=== PATIENT | female | born 1950 | race Caucasian/White ===

== ENCOUNTER 2019-09-20 08:33 | Emergency (ER) | payer OTHER, SELFPAY ==
[2019-09-20 08:46] VITALS: BP 149/76; PULSE 82; RESP 16; TEMP 37.6; O2SAT 100
--- NOTE | 2019-09-20 08:46 | ED.SKABFB ---
HPI - Skin/Abscess/Foreign Bdy General Chief complaint: Skin/Abscess/Foreign Body Stated complaint: Needle in foot Time Seen by Provider: 09/20/19 08:56 Source: patient and RN notes reviewed Mode of arrival: ambulatory Limitations: no limitations History of Present Illness HPI narrative: This is a 69 years old female presents to the office for an evaluation of possible foreign body in her foot. States, she accidentally step on a needle and broke in half. The bottom end of the needle is still inside her left great toe because she can still see the sting attached to it. He attempt to try to remove it with no success due to pain. Tetanus is about 10 years ago, she would like a booster.She is not Diabetic. Related Data Home Medications Medication Instructions Recorded Confirmed Arthritis Med 09/20/19 Allergies Allergy/AdvReac Type Severity Reaction Status Date / Time No Known Allergies Allergy Verified 09/20/19 09:03 Review of Systems Review of Systems: Narrative: CONSTITUTIONAL: Denies fever or feeling ill CARDIOVASCULAR: Denies chest pain RESPIRATORY: Denies dyspnea GASTROINTESTINAL: Denies abdominal pain, nausea, vomiting MUSCULOSKELETAL: Reports left great toe pain with touching affected area NEUROLOGIC: Denies lightheaded All other systems reviewed are negative, except as documented in HPI. PMFSH Comments At time of signature, I agree with nursing past medical, surgical, social and family history. There is no relevant family history pertinent to the presenting complaint. Exam Narrative: Exam Narrative: GENERAL: This is a well-nourished, well-developed patient, in no apparent distress. CARDIOVASCULAR: Regular rate and rhythm without murmurs, gallops, or rubs. RESPIRATORY: Clear to auscultation. Breath sounds equal bilaterally. No wheezes, rales, or rhonchi. GASTROINTESTINAL: Abdomen soft, non-tender, nondistended. Bowel sounds are active. No guarding. SKIN: warm, intact with no suspicious lesions or rash, good texture and turgor. NEURO: awake, alert, and oriented to person, place and time. There were no obvious focal neurologic abnormalities. Steady gait EXTREMITIES: Normal range of motion. Pedal pulse intact. Left medial aspect of great toe noted blue thread with foreign body sensation to palpation. [place] Coma Scale Eye Opening: Spontaneous 4 Sadie Coma Scale Motor: Obeys Commands 6 Sadie Coma Scale Verbal: Oriented 5 Course Vital Signs Vital signs: Vital Signs Temperature 99.7 F H 09/20/19 08:46 Pulse Rate 82 09/20/19 08:46 Respiratory Rate 16 09/20/19 08:46 Blood Pressure 149/76 H 09/20/19 08:46 Pulse Oximetry 100 09/20/19 08:46 Temperature 99.7 F H 09/20/19 08:46 Pulse Rate 82 09/20/19 08:46 Respiratory Rate 16 09/20/19 08:46 Blood Pressure 149/76 H 09/20/19 08:46 Pulse Oximetry 100 09/20/19 08:46 Procedures Foreign Body Removal Foreign Body #1: Foreign Body Removal Date: 09/20/19 Foreign Body Removal Time: 09:04 Time Out Performed: no Site: left, lower extremity and other (toe) Description of foreign body: needle Sedation/Analgesia: none and other (localize lidocain with .5ml) Technique: manual removal and incision made to facilitate removal Confirmed by:: direct visualization Complications: none Post-procedure exam: awake, alert Neurovascular: normal distal pulse, normal capillary fill, distal light touch sensation intact and no change from pre-procedure Foreign Body Removal Narrative: The wound was cleaned with Betadine swab prior to localized injection of lidocaine and small incision is made to facilitate the removal of a needle. No foreign body felt after the removal of needle. Patient tolerated procedure well. Dressing applied by nurse. MDM - Skin/Abscess/Foreign Bdy MDM Narrative Medical decision making narrative: Discharge instructions reviewed with patient, as well a
[2019-09-20] MEDS: TETANUS,DIPHTHERIA,AC PERTUSSIS ADULT (0.5 ML) BOOSTRIX IM (09:11)
== END 2019-09-20 09:25 | disposition home or self-care (01) ==
PROVIDERS: Emergency Provider Nurse Practitioner; PCP Internal Medicine
DX: S91.142A Puncture wound with foreign body of left great toe without damage to nail, initial encounter (principal); W27.3XXA Contact with needle (sewing), initial encounter; Z23 Encounter for immunization; M19.90 Unspecified osteoarthritis, unspecified site; Z96.642 Presence of left artificial hip joint; Z85.3 Personal history of malignant neoplasm of breast; Z85.820 Personal history of malignant melanoma of skin
CPT/HCPCS: 28190; 90471; 90715; 99212; G0463

== ENCOUNTER 2023-04-20 14:41 | Emergency (ER) | payer OTHER, SELFPAY ==
--- NOTE | ~2023-04-20 | XR_ITS ---
EXAMINATION: XR chest 2V Exam Date/Time: 04/20/2023 15:10 CLAIMS CLERK HISTORY: Cough x 3 weeks. Hx of breast cancer. Comparison: None. RESULT: Lines, tubes, and devices: None. Lungs and pleura: Ill-defined, somewhat nodular appearing opacities in the right lung and the left l ower lung. Streaky left medial basilar opacities. Senescent/emphysematous change. Cardiomediastinal silhouette: Arch calcification. Dilated central pulmonary arteries as can be seen with pulmonary arterial hypertension. Other: No acute osseous or upper abdominal finding. IMPRESSION: Bilateral nodular appearing opacities may or present multifocal pneumonia or pulmonary nodules. Possi ble left medial basilar aspiration. Consider CT of the chest with contrast for further evaluation. Reviewed, dictated and finalized at location K. MS CLERK IMPRESSION: Bilateral nodular appearing opacities may or present multifocal pneumonia or pu lmonary nodules. Possible left medial basilar aspiration. Consider CT of the ch est with contrast for further evaluation.
[2023-04-20 14:53] VITALS: BP 142/69; PULSE 125; RESP 18; TEMP 37.4; O2SAT 95
--- NOTE | 2023-04-20 15:11 | ED.URI ---
HPI - URI/Sore Throat General Chief Complaint: Upper Respiratory Infection Stated Complaint: Cough/Fever History of Present Illness HPI Narrative: Patient presents with a history of 3 week cough. Productive at times. Patient denies any shortness of breath no chest pain. Related Data Home Medications Medication Instructions Recorded Confirmed anastrozole 1 mg tablet mg 04/20/23 diclofenac sodium 75 mg mg PO 04/20/23 tablet,delayed release lisinopril 04/20/23 naproxen 500 mg tablet mg 04/20/23 tramadol 50 mg tablet mg 04/20/23 Allergies Allergy/AdvReac Type Severity Reaction Status Date / Time No Known Allergies Allergy Verified 04/20/23 14:55 Review of Systems Review of Systems: CONSTITUTIONAL: Denies chills, or sweats. Reports fever and generalized body aches EYES: Denies visual changes, redness, or discharge. ENT: Denies otalgia. Reports nasal congestion runny nose and sore throat CARDIOVASCULAR: Denies chest pain, palpitations, or edema. RESPIRATORY: Denies dyspnea. Reports occasional cough GASTROINTESTINAL: Denies abdominal pain, nausea, vomiting, or diarrhea. GENITOURINARY: Denies dysuria or hematuria. SKIN: Denies rash or itching. MUSCULOSKELETAL: Denies back pain, joint pain, or myalgia. Reports generalized body aches NEUROLOGIC: Denies headache, numbness, or weakness. PSYCHIATRIC: Denies anxiety or depression. PMFSH Comments At time of signature, agree with nursing past medical, surgical, social and family history. There is no relevant family history pertinent to the presenting complaint Exam Narrative: The patient is a well-developed, well-nourished in no acute distress. SKIN: Skin is warm and dry without erythema, swelling or exudate. There is good turgor. No tenting. HEAD: Atraumatic. Normocephalic. No temporal or scalp tenderness. EYES: Moist and bright. Sclera and conjunctivae normal. No discharge. PERRLA. Extraocular motions intact. Gross visual acuity intact. EARS: Pinna is normal shape and contour. Clear external auditory canals. TM pearly quevedo with good cone of light, no erythema or suppuration. Bilateral cerumen noted no gross hearing deficit. NOSE: pink, moist mucosa with good air movement. Clear rhinorrhea without nasal flaring. Septum midline. Mouth: moist mucous membranes. THROAT; mild erythema noted to posterior oropharynx with moderate postnasal drainage. Without exudate or ulceration.. Uvula midline. Normal movement of soft palate. NECK: Supple and nontender with full range of motion without discomfort. No meningeal signs. LUNGS: Equal and bilateral breath sounds without wheezes, rales or rhonchi. CHEST: The chest wall is without retractions or use of accessory muscles. HEART: Has a regular rate and rhythm without murmur, gallops, click or rub. ABDOMEN: Soft, nontender with positive active bowel sounds. No rebound tenderness. EXTREMITIES: Without cyanosis, clubbing or edema. Equal 2+ distal pulses and 2 second capillary refill noted. NEUROLOGIC: alert, active, . The patient moves all extremities with normal muscle strength. Normal muscle tone is noted. Normal coordination is noted. NO focal neurological findings noted. Course Course Level of Care: Express Care Visit Vital Signs Vital signs: Vital Signs Temperature 37.4 C 04/20/23 14:53 Pulse Rate 125 H 04/20/23 14:53 Respiratory Rate 18 04/20/23 14:53 Blood Pressure 142/69 H 04/20/23 14:53 Pulse Oximetry 95 04/20/23 14:53 Oxygen Delivery Room Air 04/20/23 14:53 Temperature 37.4 C 04/20/23 14:53 Pulse Rate 125 H 04/20/23 14:53 Respiratory Rate 18 04/20/23 14:53 Blood Pressure 142/69 H 04/20/23 14:53 Pulse Oximetry 95 04/20/23 14:53 Oxygen Delivery Room Air 04/20/23 14:53 Discharge Plan Discharge Clinical Impression: Cough, Lung crackles, Pneumonia Patient Disposition: Home, Self-Care Condition: Stable Additional Instructions: Take medications as pre
== END 2023-04-20 15:50 | disposition home or self-care (01) ==
PROVIDERS: Emergency Provider Nurse Practitioner Family; PCP Internal Medicine
DX: J18.9 Pneumonia, unspecified organism (principal); Z79.899 Other long term (current) drug therapy; Z79.891 Long term (current) use of opiate analgesic; Z79.1 Long term (current) use of non-steroidal anti-inflammatories (NSAID)
CPT/HCPCS: 71046; 99213; G0463